=== PATIENT | male | born 1985 | race Hispanic/Latino ===

== ENCOUNTER 2017-06-25 23:06 | Emergency (ER) | payer BC, OTHER ==
[2017-06-25] MEDS ORDERED: LIDOCAINE HCL 2% 20ML ONE (23:24)
== END 2017-06-25 23:47 | disposition home or self-care (01) ==
LOC: EDH 23:06
DX: S61.412A Laceration without foreign body of left hand, initial encounter (principal); W45.8XXA Other foreign body or object entering through skin, initial encounter; Y93.89 Activity, other specified; Y92.096 Garden or yard of other non-institutional residence as the place of occurrence of the external cause; Y99.8 Other external cause status
CPT/HCPCS: 12041; 99284; J3490

== ENCOUNTER 2017-07-12 23:52 | Emergency (ER) | payer SELFPAY ==
[2017-07-13] MEDS ORDERED: KETOROLAC TROMETHAMINE 60 MG/2 ML VIAL ONE (00:09)
[2017-07-13] MEDS ORDERED: DiphenhydrAMINE HCL 50 MG/ML VIAL ONE (00:09)
[2017-07-13] MEDS ORDERED: ONDANSETRON ODT 4 MG TAB ONE (00:10)
== END 2017-07-13 01:06 | disposition home or self-care (01) ==
LOC: EDH 23:52
DX: B34.9 Viral infection, unspecified (principal); R21 Rash and other nonspecific skin eruption
CPT/HCPCS: 87804 ×2; 96372 ×2; 99284; J1200; J1885

== ENCOUNTER 2017-10-16 12:45 | Emergency (ER) | payer SELFPAY | END 2017-10-16 13:11 | disposition home or self-care (01) | LOC: EDH 12:45 | DX: L60.0 Ingrowing nail (principal) ==

== ENCOUNTER 2018-04-23 20:15 | Emergency (ER) | payer OTHER ==
[2018-04-23] MEDS ORDERED: KETOROLAC TROMETHAMINE 30MG/ML ONE (22:02)
[2018-04-23] MEDS ORDERED: CEFTRIAXONE SODIUM 500 MG VIAL ONE (22:07)
== END 2018-04-23 22:35 | disposition home or self-care (01) ==
LOC: EDH 20:15
DX: N45.1 Epididymitis (principal)
CPT/HCPCS: 76870; 96372 ×2; 99284; J0696; J1885

== ENCOUNTER 2019-09-05 01:20 | Emergency (ER) | payer OTHER ==
[2019-09-05] MEDS ORDERED: MORPHINE SULFATE 4 MG/1ML SYG ONE (01:59)
[2019-09-05] MEDS ORDERED: IOHEXOL 350 MG/ML 100ML INFUS..BTL IV ONE (01:59)
[2019-09-05] MEDS ORDERED: ONDANSETRON HCL 4 MG/2 ML VIAL ONE (01:59)
[2019-09-05 02:18] LABS: BASOPHILS % (AUTO) 0.7 % (0.0-5.0); EOSINOPHILS % (AUTO) 0.2 % (0.0-8.0); HEMATOCRIT 42.5 % (42-54); LYMPHOCYTES % (AUTO) 14.1 % (21.0-51.0); MEAN CORPUSCULAR HEMOGLOBIN 29.9 pg (27.0-33.0); MEAN CORPUSCULAR HGB CONC 33.4 g/dL (32.0-36.0); MEAN CORPUSCULAR VOLUME 89.5 fL (79-99); NEUTROPHILS % (AUTO) 79.4 % (40.0-77.0); PLATELET COUNT (AUTO) 248 K/uL (130-400); RED BLOOD CELL COUNT(AUTO) 4.75 MIL/uL (4.50-6.20); RED CELL DISTRIBUTION WIDTH 11.9 % (11.0-15.5); WHITE BLOOD COUNT (AUTO) 10.8 K/uL (4.8-10.8)
[2019-09-05] MEDS ORDERED: LACTATED RINGERS 1000ML 1,000 ML IV ONE (02:27)
[2019-09-05 02:47] LABS: ALBUMIN 2.1 g/dL (3.5-5.0); CREATININE 0.6 mg/dL (0.5-1.5); TOTAL PROTEIN, SERUM 4.1 g/dL (6.0-8.3)
[2019-09-05 02:51] LABS: POTASSIUM 2.1 mmol/L (3.5-5.1)
[2019-09-05 03:00] LABS: BILIRUBIN,TOTAL 0.1 mg/dL (0.2-1.0)
[2019-09-05 03:53] LABS: CREATININE 1.2 mg/dL (0.5-1.5); POTASSIUM 4.3 mmol/L (3.5-5.1)
[2019-09-05 03:58] LABS: BILIRUBIN,TOTAL 0.2 mg/dL (0.2-1.0); TOTAL PROTEIN, SERUM 7.7 g/dL (6.0-8.3)
== END 2019-09-05 04:40 | disposition home or self-care (01) ==
LOC: EEVIPCON 01:20 → EDH 01:20
DX: S70.12XA Contusion of left thigh, initial encounter (principal); S70.11XA Contusion of right thigh, initial encounter; M54.5 Low back pain; R51 Headache; R07.89 Other chest pain; R10.9 Unspecified abdominal pain; Z88.8 Allergy status to other drugs, medicaments and biological substances; V49.49XA Driver injured in collision with other motor vehicles in traffic accident, initial encounter; Y93.89 Activity, other specified; Y92.89 Other specified places as the place of occurrence of the external cause; Y99.8 Other external cause status
CPT/HCPCS: 36415; 70450; 71260; 72125; 73552 ×2; 74177; 80053 ×2; 82550; 83690; 84484; 85025; 93005; 96374; 96375; 99285; J2270; J2405; J7120; Q9967

== ENCOUNTER 2021-12-20 15:43 | Emergency (ER) | payer OTHER ==
[~2021-12-20] VITALS: Ht 167.6 cm; Wt 94.8 kg
[2021-12-20 15:55] VITALS: BP 121/88
[2021-12-20] MEDS ORDERED: ACET-2079 PO (16:22)
[2021-12-20] MEDS ORDERED: CIPR7.5D OT (16:22)
[2021-12-20] MEDS ORDERED: ACETAMINOPHEN WITH CODEINE 1 TAB TAB PO ONE (16:30)
[2021-12-20] MEDS ORDERED: KETOROLAC 30MG VIAL (30MG/ML) IM ONE (16:30)
== END 2021-12-20 16:49 | disposition home or self-care (01) ==
LOC: EDH 15:43
DX: H60.91 Unspecified otitis externa, right ear (principal)
CPT/HCPCS: 96372; 99283; J1885

== ENCOUNTER 2023-10-22 13:49 | Emergency (ER) | payer OTHER ==
[~2023-10-22] VITALS: Ht 167.6 cm; Wt 90.7 kg
[~2023-10-22 13:49] MED LIST: ACET-2079 PO; CIPR7.5D OT
[2023-10-22 13:52] VITALS: BP 132/89; PULSE 116; RESP 16
[2023-10-22] MEDS ORDERED: IBUPROFEN 800 MG TAB PO ONE (16:00)
== END 2023-10-22 18:44 | disposition left against medical advice (07) ==
LOC: EDH 13:49
DX: G43.909 Migraine, unspecified, not intractable, without status migrainosus (principal); R50.9 Fever, unspecified; M79.10 Myalgia, unspecified site; R05.9 Cough, unspecified; Z79.899 Other long term (current) drug therapy; Z98.890 Other specified postprocedural states
CPT/HCPCS: 99281